=== PATIENT | female | born 1935 | race Caucasian/White ===

== ENCOUNTER 2022-12-18 11:45 | Inpatient (IN) | payer BC ==
[~2022-12-18] VITALS: Ht 165.1 cm; Wt 66.2 kg
[2022-12-18] MEDS ORDERED: POTASSIUM (12:01)
[2022-12-18] MEDS ORDERED: LIPITOR (12:01)
[2022-12-18] MEDS ORDERED: ALENDRONATE (12:01)
[2022-12-18] MEDS ORDERED: AMOXICILLIN (12:01)
[2022-12-18] MEDS ORDERED: FUROSEMIDE (12:01)
[2022-12-18] MEDS ORDERED: CELEBREX (12:01)
[2022-12-18] MEDS ORDERED: MONTELUKAST (12:01)
[2022-12-18] MEDS ORDERED: TYLENOL (12:01)
--- NOTE | 2022-12-18 12:01 | NUR ---
PT DOES NOT REMEMBER DOSAGES OF HER HOME MEDICATION.
[2022-12-18 12:19] LABS: HEMATOCRIT 37.4 % (31.2-41.9); MEAN CORPUSCULAR HEMOGLOBIN 31.2 uug (24.7-32.8); MEAN CORPUSCULAR VOLUME 92.6 fL (75.5-95.3); PLATELET COUNT (AUTO) 408 K/uL (179-408)
[2022-12-18 12:28] LABS: CARBON DIOXIDE 22 mmol/L (21-32); CHLORIDE 104 mmol/L (98-107); CREATININE 0.9 mg/dL (0.6-1.3); GLUCOSE 145 mg/dL (74-106); POTASSIUM 3.6 mmol/L (3.5-5.1); UREA NITROGEN, BLOOD 16 mg/dL (7-18)
[2022-12-18 12:43] LABS: ALANINE AMINOTRANSFERASE 16 U/L (14-59); ALKALINE PHOSPHATASE 93 U/L (50-136); ASPARTATE AMINOTRANSFERASE 11 U/L (15-37); BILIRUBIN,DIRECT 0.1 mg/dL (0.0-0.2); BILIRUBIN,TOTAL 0.3 mg/dL (0.2-1.0); TOTAL PROTEIN, SERUM 7.6 g/dL (6.4-8.2)
--- NOTE | 2022-12-18 13:54 | NUR ---
obtained urine sample, took to lab
[2022-12-18 14:04] LABS: *BILIRUBIN,URIN NEGATIVE (NEGATIVE); *BLOOD, URINE NEGATIVE (NEGATIVE); *CLARITY,URINE CLEAR (CLEAR); *COLOR,URINE YELLOW (YELLOW); *KETONES,URINE NEGATIVE (NEGATIVE); LEUKOCYTE ESTERASE ,URINE 1+ (NEGATIVE); NITRITE, URINE POSITIVE (NEGATIVE); UGLUCOSE NEGATIVE (NEGATIVE)
[2022-12-18] MEDS ORDERED: IV NORMAL SALINE 1000 ML BAG IV ONE (14:30)
[2022-12-18] MEDS ORDERED: CEFTRIAXONE 2 G in IV DEXTROSE 5% 100 ML IV ONE (14:30)
[2022-12-18] MEDS ORDERED: FURO20TA4 PO (15:19)
[2022-12-18] MEDS ORDERED: ERGO400C PO (15:19)
[2022-12-18] MEDS ORDERED: CELE200C PO (15:19)
[2022-12-18] MEDS ORDERED: [UNRECOGNIZED DRUG - OTHER] (15:19)
[2022-12-18] MEDS ORDERED: GUAI1TBM19 PO (15:19)
[2022-12-18] MEDS ORDERED: MONT10TA22 PO (15:19)
[2022-12-18] MEDS ORDERED: ANAS5POW2 MC (15:19)
[2022-12-18] MEDS ORDERED: ATOR10TA PO (15:19)
[2022-12-18] MEDS ORDERED: ALEN70TA80 PO (15:19)
[2022-12-18] MEDS ORDERED: NEBULIZER INH (15:19)
[2022-12-18] MEDS ORDERED: CALC600T35 PO (15:19)
[2022-12-18] MEDS ORDERED: GABA-532 PO (15:19)
[2022-12-18] MEDS ORDERED: POTA10CA43 PO (15:19)
[2022-12-18 15:53] LABS: BACTERIA,URINE MANY /HPF (NONE SEEN); RBC,URINE 0-3 /HPF (0-3); WBC,URINE 20-50 /HPF (0-3)
[2022-12-18 15:54] LABS: CALCIUM CARBONATE CRYSTALS,UR NONE SEEN /HPF (NONE SEEN); CALCIUM OXALATE CRYSTALS,UR NONE SEEN /HPF (NONE SEEN); CALCIUM PHOSPHATE CRYSTALS,UR NONE SEEN /HPF (NONE SEEN); COARSE GRANULAR CASTS,URINE NONE SEEN /LPF; CYSTINE CRYSTALS,URINE NONE SEEN /HPF (NONE SEEN); FATTY CASTS,URINE NONE SEEN /LPF (NONE SEEN); MUCUS,URINE FEW /LPF (0-FEW); RED BLOOD CELL CASTS,URINE NONE SEEN /LPF (NONE SEEN); SPERM,URINE NONE SEEN /HPF (NONE SEEN); SQUAMOUS EPITHELIAL CELL,UR FEW /HPF (NONE SEEN); TRICHOMONAS,URINE NONE SEEN /HPF (NONE SEEN); TRIPLE PHOSPHATE CRYSTAL,UR NONE SEEN /HPF (NONE SEEN); TYROSINE CRYSTAL,URINE NONE SEEN /HPF (NONE SEEN); URIC ACID CRYSTALS,URINE NONE SEEN /HPF (NONE SEEN); URINE AMORPHOUS PHOSPHATES NONE SEEN /HPF; URINE AMORPHOUS URATE NONE SEEN /HPF; WAXY CASTS,URINE NONE SEEN /LPF (NONE SEEN); YEAST,URINE NONE SEEN /HPF (NONE SEEN)
[2022-12-18 20:00] VITALS: BP 130/71
--- NOTE | 2022-12-18 20:00 | NUR ---
RECEIVED PATIENT AWAKE IN BED. A/O X4. DENIES ANY PAIN OR DISCOMFORT. NO RESP. DISTRESS NOTED. DENIES ANY SOB. H/L INTACT AND NOTED TO LEFT AC #20 GAUGE. CALL LIGHT IN REACH. ALL NEEDS ATTENDED, WILL CONTINUE TO MONITOR AND ASSESS.
[2022-12-18] MEDS ORDERED: ACETAMINOPHEN 325 MG TABLET PO PRN (21:00)
[2022-12-18] MEDS ORDERED: REMEDY ESSENTIAL ZINC PASTE 113 GM TP PRN (21:00)
[2022-12-18] MEDS ORDERED: ONDANSETRON 4 MG/2 ML VIAL IV PRN (21:00)
[2022-12-18] MEDS ORDERED: MAGNESIUM HYDROXIDE 30 ML LIQUID UDC PO PRN (21:00)
[2022-12-18] MEDS: methylPREDNISolone SOD SUCC 40 MG/ML VIAL IV SCH (21:41)
[2022-12-18] MEDS: ENOXAPARIN SODIUM 40 MG/0.4 ML DISP.SYRIN SQ SCH ×2 (21:45→22:08)
[2022-12-18] MEDS ORDERED: DOXYCYCLINE HYCLATE 100 MG INJ IV ONE (21:50)
[2022-12-18] MEDS: DOXYCYCLINE HYCLATE IV 100 MG in IV DEXTROSE 5% 100 ML IV SCH (22:00)
[2022-12-18] MEDS: IPRATROPIUM BROMIDE 0.5 MG/2.5 ML NEBU NEB SCH (22:43)
[2022-12-18] MEDS: ALBUTEROL SULFATE 2.5 MG/3 ML NEBU NEB SCH (22:43)
[2022-12-19] MEDS: IPRATROPIUM BROMIDE 0.5 MG/2.5 ML NEBU NEB SCH ×4 (02:39→14:57)
[2022-12-19] MEDS: ALBUTEROL SULFATE 2.5 MG/3 ML NEBU NEB SCH ×4 (02:39→14:57)
[2022-12-19 04:00] VITALS: BP 107/58
[2022-12-19] MEDS: methylPREDNISolone SOD SUCC 40 MG/ML VIAL IV SCH ×2 (05:40→14:12)
[2022-12-19 07:25] LABS: HEMATOCRIT 35.3 % (31.2-41.9); MEAN CORPUSCULAR VOLUME 93.2 fL (75.5-95.3); PLATELET COUNT (AUTO) 383 K/uL (179-408)
[2022-12-19 07:42] LABS: CREATININE 0.8 mg/dL (0.6-1.3); MAGNESIUM 2.3 mg/dL (1.8-2.4); PHOSPHOROUS 3.6 mg/dL (2.5-4.9); POTASSIUM 3.6 mmol/L (3.5-5.1)
[2022-12-19] MEDS: DOXYCYCLINE HYCLATE IV 100 MG in IV DEXTROSE 5% 100 ML IV SCH (08:30)
[2022-12-19 09:00] VITALS: BP 131/60
[2022-12-19] MEDS ORDERED: ENOXAPARIN SODIUM 40 MG/0.4 ML DISP.SYRIN SQ SCH (09:00)
[2022-12-19] MEDS ORDERED: FUROSEMIDE 20 MG TABLET PO SCH (09:00)
[2022-12-19] MEDS ORDERED: CELECOXIB 200 MG CAPSULE PO SCH (09:00)
[2022-12-19] MEDS ORDERED: CEFTRIAXONE 1 G in IV DEXTROSE 5% 50 ML IV SCH ×2 (09:00→15:00)
[2022-12-19] MEDS ORDERED: POTASSIUM CHLORIDE 10 MEQ TAB.PRT.SR PO SCH (09:00)
[2022-12-19] MEDS ORDERED: GABAPENTIN 100 MG CAPSULE PO SCH (09:00)
[2022-12-19 11:50] VITALS: BP 102/58
[2022-12-19] MEDS ORDERED: CEFP200T14 PO (14:43)
[2022-12-19] MEDS ORDERED: METH4TAB3 PO (14:43)
[2022-12-19] MEDS ORDERED: ALBU8.5H8 INH (14:43)
[2022-12-19 15:57] VITALS: BP 112/52
[2022-12-19] MEDS ORDERED: MONTELUKAST SODIUM 10 MG TABLET PO SCH (18:00)
--- NOTE | 2022-12-19 18:49 | NUR ---
PATIENT IS ALERT AND ORIENTED X4, AND ABLE TO SPEAK [place]. VITAL SIGNS STABLE. PATIENT TOLERATES PO MEDICATIONS AND DIET WELL. IV FLUIDS AND ANTIBIOTICS GIVEN PER ORDER. ALL NEEDS MET AT THIS TIME. CALL LIGHT WITHIN REACH. PATIENT MADE AWARE OF DISCHARGE BY PROVIDERS. IV REMOVED. CATHETER TIP INTACT. RN PROVIDES DISCHARGE EDUCATION. PATIENT VERBALIZES UNDERSTANDING. ALL QUESTIONS ANSWERED. PATIENT BELONGINGS ACCOUNTED FOR. PATIENT BELONGINGS LIST SIGNED. PATIENT DISCHARGE VIA WHEELCHAIR IN STABLE CONDITION TO [facility].
[2022-12-19] MEDS ORDERED: ATORVASTATIN 10 MG TABLET PO SCH (21:00)
== END 2022-12-19 16:25 | disposition home health service (06) | DRG 202 ==
LOC: ER 11:45 → MEDSURG3 17:50
PROVIDERS: ADMIT Nurse Practitioner Acute Care; ATTEND Nurse Practitioner Acute Care
DX: J20.9 Acute bronchitis, unspecified (principal); J96.01 Acute respiratory failure with hypoxia; N39.0 Urinary tract infection, site not specified; J45.901 Unspecified asthma with (acute) exacerbation; I50.32 Chronic diastolic (congestive) heart failure; Z20.822 Contact with and (suspected) exposure to COVID-19; Z66 Do not resuscitate; B96.89 Other specified bacterial agents as the cause of diseases classified elsewhere; I11.0 Hypertensive heart disease with heart failure; Z79.899 Other long term (current) drug therapy; Z85.3 Personal history of malignant neoplasm of breast; K21.9 Gastro-esophageal reflux disease without esophagitis; M81.0 Age-related osteoporosis without current pathological fracture; G62.9 Polyneuropathy, unspecified; M19.90 Unspecified osteoarthritis, unspecified site; Z96.651 Presence of right artificial knee joint; Z87.891 Personal history of nicotine dependence
CPT/HCPCS: 36415; 71045; 83605; 83735; 84100; 84443; 84484; 85025; 87040; 93005; 94640; A4663; G0378; J0696; J1650; J2920; J3490; J3590; J7040